=== PATIENT | female | born 2000 | race Caucasian/White ===

== ENCOUNTER 2019-06-27 12:18 | Emergency (ER) | payer MEDICAID ==
[~2019-06-27] VITALS: Ht 167.6 cm; Wt 63.5 kg
[2019-06-27] MEDS ORDERED: ZOFRAN4 MG PO (12:28)
[2019-06-27 12:39] LABS: URINE BILIRUBIN NEGATIVE (Negative); URINE BLOOD NEGATIVE (Negative); URINE CLARITY CLEAR; URINE COLOR YELLOW; URINE GLUCOSE-RANDOM NEGATIVE (Negative); URINE KETONES NEGATIVE (Negative); URINE LEUKOCYTES-REFLEX NEGATIVE (Negative); URINE NITRITE-REFLEX NEGATIVE (Negative); URINE PROTEIN NEGATIVE (Negative)
[2019-06-27 12:46] VITALS: BP 116/54
== END 2019-06-27 12:47 | disposition left against medical advice (07) ==
LOC: M.ERS 12:18
PROVIDERS: Family Medicine
DX: O26.892 Other specified pregnancy related conditions, second trimester (principal); R10.32 Left lower quadrant pain; R10.31 Right lower quadrant pain; Z3A.19 19 weeks gestation of pregnancy